=== PATIENT | female | born 1935 | race Hispanic/Latino ===

== ENCOUNTER 2018-11-05 14:33 | Emergency (ER) | payer OTHER ==
--- OUTSIDE RECORDS SUMMARY | 2018-11-05 14:38 | XMS REPORT | Clinical Summary ---
:1935 Author Organization [facility] Address [address] [place] [address] Care Team Providers Name Role Phone Sharpless Primary Care Provider Allergies Active Allergy Reactions Severity Noted Date Comments Capsaicin-Menthol 11/01/2016 Medications Medication Sig Dispensed Refills Start Date End Date Status sulfaSALAzine Take 500 mg by 0 Active (AZULFIDINE) 500 MG EC mouth 2 (two) tablet times daily. losartan (COZAAR) 100 MG Take 100 mg by 0 Active tablet mouth daily. furosemide (LASIX) 20 MG Take 10 mg by 0 Active tablet mouth daily. amLODIPine (NORVASC) 5 MG Take 5 mg by 0 Active tablet mouth nightly. atorvastatin (LIPITOR) 10 Take 10 mg by 0 Active MG tablet mouth daily. famotidine (PEPCID) 40 MG Take 40 mg by 0 Active tablet mouth daily. montelukast (SINGULAIR) Take 10 mg by 0 Active 10 mg tablet mouth every morning. levocetirizine (XYZAL) 5 Take 5 mg by 0 Active MG tablet mouth every evening. gabapentin (NEURONTIN) Take 300 mg by 0 Active 300 MG capsule mouth nightly. timolol (BETIMOL) 0.5 % Place 1 drop 0 Active ophthalmic solution into both eyes every morning. cycloSPORINE (RESTASIS) Place 1 drop 0 Active 0.05 % ophthalmic into both eyes emulsion every morning. Active Problems Problem Noted Date Complete heart block 11/01/2016 HTN (hypertension) 11/01/2016 HLD (hyperlipidemia) 11/01/2016 Cardiac syncope 11/01/2016 Social History Tobacco Use Types Packs/Day Years Used Date Never Smoker Alcohol Use Drinks/Week oz/Week Comments No Sex Assigned at Date Recorded Not on file Job Start Date Occupation Industry Not on file Not on file Not on file Travel History Travel Start Travel End No recent travel history available. Last Filed Vital Signs Not on file Plan of Treatment Not on file Implants Implanted Type Area Gun Numberer Device Shelf Model / Identifier Expiration Serial / Date Lot Lead Pacemkr Capsur Novus 52cm 5076-52 - [id number] Pacemaker Lead N/A: [employer]:CARD 05/20/2018 5076-52 / Implanted: Qty: 1 on 11/01/2016 by Rodrigo Limon MD Heart RHY:DISEASE MGT [id number] / Lead Pacemkr Capsur Novus 45cm 5076-45 - [id number] Pacemaker Lead N/A: [employer]:CARD 07/26/2018 5076-45 / Implanted: Qty: 1 on 11/01/2016 by Rodrigo Limon MD Heart RHY:DISEASE MGT [id number] / Pacemaker [address] - [id number] Pacemakers Left: [employer]:CARD 12/16/2017 [id number] / Implanted: Qty: 1 on 11/01/2016 by Rodrigo Limon MD Chest RHY:DISEASE MGT [id number] / Wall Results Not on fileafter 11/04/2017 Insurance Payer Benefit Plan / Group Subscriber ID Type Phone Address MEDICARE MEDICARE A B xxxxxxxxxx Medicare MEDICAID MEDICAID [place] xxxxxxxxx Medicaid (Home) [place] [address] Advance Directives For more information, please contact:[address] [phone] Code Status Date Activated Date Inactivated Comments Full Code 11/01/2016 1:18 PM 11/02/2016 5:18 PM This code status was determined by: Patient Full Code 11/01/2016 12:43 AM 11/01/2016 1:18 PM This code status was determined by: Patient
--- OUTSIDE RECORDS SUMMARY | 2018-11-05 14:38 | XMS REPORT ---
:1935 Author Organization [facility] Address [address] [place] [address] [address] [place] [address] Care Team Providers Name Role Phone RUPINDER BECKWITH Unavailable Unavailable Problems This patient has no known problems. Allergies, Adverse Reactions, Alerts This patient has no known allergies or adverse reactions. Medications This patient has no known medications. Results Test Description Test Time Test Comments Text Results Atomic Results Result Comments PROTHROMBIN TIME/INR 2016-11-02 05:40:00 Test Item Value Reference Range Comments PROTIME (BEAKER) (test xrqo=375) 14.8 seconds 11.7-14.7 INR (BEAKER) (test sjue=900) 1.2 <=5.9 RECOMMENDED COUMADIN/WARFARIN INR THERAPY RANGESSTANDARD DOSE: 2.0 - 3.0 Includes: PROPHYLAXIS forvenous thrombosis, systemic embolization; TREATMENT for venous thrombosis and/or pulmonary embolus.HIGH RISK: Target INR is 2.5-3.5 for patients with mechanical heart valves.[id number] 05:24:00 Test Item Value Reference Range Comments SODIUM (BEAKER) (test hhkw=744) 140 meq/L 136-145 POTASSIUM (BEAKER) (test rcyz=898) 3.5 meq/L 3.5-5.1 CHLORIDE (BEAKER) (test llzv=379) 110 meq/L 98-107 CO2 (BEAKER) (test ngio=390) 23 meq/L 22-29 BUN AND [id number] 05:24:00 Test Item Value Reference Range Comments BLOOD UREA NITROGEN 16 mg/dL 7-21 (BEAKER) (test zvnb=504) CREATININE (BEAKER) (test 0.70 mg/dL 0.57-1.25 qywu=521) EGFR (BEAKER) (test 81 mL/min/1.73 sq m ESTIMATED GFR IS NOT hxka=4641) ACCURATE CREATININE CLEARANCE IN PREDICTING GLOMERULAR FILTRATION RATE. ESTIMATED GFR IS NOT APPLICABLE FOR DIALYSIS PATIENTS. CBC (HEMOGRAM ONLY)2016-11-02 05:21:00 Test Item Value Reference Range Comments WHITE BLOOD CELL COUNT (BEAKER) (test hdxm=888) 10.4 K/ L 4.0-10.0 RED BLOOD CELL COUNT (BEAKER) (test jntv=624) 3.86 M/ L 4.00-5.00 HEMOGLOBIN (BEAKER) (test gjlo=484) 11.4 GM/DL 12.0-15.0 HEMATOCRIT (BEAKER) (test lvjb=171) 34.7 % 36.0-45.0 MEAN CORPUSCULAR VOLUME (BEAKER) (test qgky=106) 90.0 fL 82.0-99.0 MEAN CORPUSCULAR HEMOGLOBIN (BEAKER) (test 29.6 pg 27.0-33.0 lgfv=299) MEAN CORPUSCULAR HEMOGLOBIN CONC (BEAKER) (test 33.0 GM/DL 32.0-36.0 kqqx=340) RED CELL DISTRIBUTION WIDTH (BEAKER) (test 12.8 % 10.3-14.2 jgkq=528) PLATELET COUNT (BEAKER) (test fjng=298) 204 K/CU MM 150-430 MEAN PLATELET VOLUME (BEAKER) (test fdre=554) 7.1 fL 6.5-10.5 NUCLEATED RED BLOOD CELLS (BEAKER) (test 0 /100 WBC 0-0 evzd=736) 0.00CREATINE KINASE (CK), TOTAL AND [id number] 01:42:00 Test Item Value Reference Range Comments CREATINE KINASE TOTAL (BEAKER) (test defu=731) 161 U/L 29-200 CREATINE KINASE-MB (BEAKER) (test adiw=518) 2.9 ng/mL 0.0-6.6 CREATINE KINASE-MB INDEX (BEAKER) (test uyvu=133) 1.8 % Effective 07/22/2014: CK-MB Reference Range ChangeNew: 0.0-6.6 Previous: 0.0- 4.9CK-MB Reference Range:<6.7 Normal6.7-10.0 Borderline>10.0 AbnormalTROPONIN [id number] 01:42:00 Test Item Value Reference Range Comments TROPONIN I (BEAKER) (test rdrk=394) 0.02 ng/mL 0.00-0.03 Effective 07/22/2014: Reference Range ChangeNew: 0.00-0.03 Previous 0.00- 0.15Troponin I (TnI) levels must be interpreted in the context of the presenting symptoms and the clinical findings. Elevated TnI levels indicate myocardial damage, but are not specific for ischemic heart disease. Elevated TnI levels are seen in patients with other cardiac conditions (including myocarditis and congestive heartfailure), and slight TnI elevations occur in patients with other conditions, including sepsis, renalfailure, acidosis, acute neurological disease, and persistent tachyarrhythmia.[id number] 01:35: 00 Test Item Value Reference Range Comments MAGNESIUM (BEAKER) (test strz=545) 1.9 mg/dL 1.6-2.6 BASIC METABOLIC [id number] 01:35:00 Test Item Value Reference Range Comments SODIUM (BEAKER) (test 141 meq/L 136-145 djbd=870) POTASSIUM (BEAKER) (test 4.7 meq/L 3.5-5.1 lzty=915) CHLORIDE (BEAKER) (test 108 meq/L 98-107 oldd=848) CO2 (BEAKER) (test 22 meq/L 22-29 qcvg=411) BLOOD UREA NITROGEN 24 mg/dL 7-21 (BEAKER) (test vcjv=734) CREATININE (BEAKER) (test 1.40 mg/dL 0.57-1.25 ptmz=368) GLUCOSE RANDOM (BEAKER) 151 mg/dL 70-105 (test rmcr=908) CALCIUM (BEAKER) (test 9.7 mg/dL 8.4-10.2 iugq=142) EGFR (BEAKER) (test 36 mL/min/1.73 sq m ESTIMATED GFR IS NOT efdi=6750) ACCURATE CREATININE CLEARANCE IN PREDICTING GLOMERULAR FILTRATION RATE. ESTIMATED GFR IS NOT APPLICABLE FOR DIALYSIS PATIENTS. HEPATIC FUNCTION [id number] 01:35:00 Test Item Value Reference Range Comments TOTAL PROTEIN (BEAKER) (test gpav=797) 6.8 gm/dL 6.0-8.3 ALBUMIN (BEAKER) (test xhzh=0857) 3.8 g/dL 3.5-5.0 BILIRUBIN TOTAL (BEAKER) (test trcr=924) 0.5 mg/dL 0.2-1.2 BILIRUBIN DIRECT (BEAKER) (test hqze=286) 0.2 mg/dL 0.1-0.5 ALKALINE PHOSPHATASE (BEAKER) (test ohbu=352) 64 U/L 40-150 AST (SGOT) (BEAKER) (test irqf=624) 19 U/L 5-34 ALT (SGPT) (BEAKER) (test atmk=714) 18 U/L 6-55 LACTIC ACID, VENOUS, WHOLE [id number] 01:31:00 Test Item Value Reference Range Comments LACTATE BLOOD VENOUS (2) (BEAKER) (test 1.6 mmol/L 0.5-2.2 etif=1925) Effective 01/06/2016: Units/Reference Range ChangeNew: 0.5-2.2 mmol/L Previous: 5 -20 mg/dLCBC (HEMOGRAM ONLY)2016-11-01 01:20:00 Test Item Value Reference Range Comments WHITE BLOOD CELL COUNT (BEAKER) (test yeoc=388) 12.9 K/ L 4.0-10.0 RED BLOOD CELL COUNT (BEAKER) (test tsba=591) 3.97 M/ L 4.00-5.00 HEMOGLOBIN (BEAKER) (test rufo=425) 12.5 GM/DL 12.0-15.0 HEMATOCRIT (BEAKER) (test cthz=259) 36.0 % 36.0-45.0 MEAN CORPUSCULAR VOLUME (BEAKER) (test bcmn=321) 90.7 fL 82.0-99.0 MEAN CORPUSCULAR HEMOGLOBIN (BEAKER) (test 31.5 pg 27.0-33.0 esvj=408) MEAN CORPUSCULAR HEMOGLOBIN CONC (BEAKER) (test 34.7 GM/DL 32.0-36.0 cjep=090) RED CELL DISTRIBUTION WIDTH (BEAKER) (test 12.6 % 10.3-14.2 kjdq=124) PLATELET COUNT (BEAKER) (test dhqw=061) 281 K/CU MM 150-430 MEAN PLATELET VOLUME (BEAKER) (test aruv=590) 7.4 fL 6.5-10.5 NUCLEATED RED BLOOD CELLS (BEAKER) (test 0 /100 WBC 0-0 tmwu=700) 0.00
[2018-11-05] MEDS ORDERED: HYDROCODONE/APAP 5/325 MG TAB ONE (15:46)
--- NOTE | 2018-11-05 16:06 | RAD REPORT ---
EXAM DESCRIPTION: RAD - Humerus Left - 11/05/2018 4:00 pm CLINICAL HISTORY: trip and fall;Pain COMPARISON: No comparisons FINDINGS: Mildly comminuted impacted fracture proximal left humerus is identified. A dislocation is not seen.
--- NOTE | 2018-11-05 16:14 | EDPHYS ---
Physician Documentation [facility] Name: Jessie Mckenna Age: 83 yrs Sex: Female : 1935 Arrival Date: 11/05/2018 Time: 14:37 Bed 15 Private MD: Rusty Arellano B ED Physician Denys Griggs HPI: 11/05 15:35 This 83 yrs old Female presents to ER via Ambulatory with complaints of Fall cp Injury. 15:35 Details of fall: The patient fell from an upright position, while standing. Onset: The cp symptoms/episode began/occurred today. Associated injuries: The patient sustained left upper arm pain, decreased range of motion, painful injury. Severity of symptoms: in the emergency department the symptoms are unchanged, despite home interventions. Historical: - Allergies: 15:02 No Known Allergies; ss - PSHx: 15:02 pacemaker; partial hysterectomy; ss - Immunization history:: Adult Immunizations up to date. - Social history:: Smoking status: Patient/guardian denies using tobacco. - Ebola Screening: : Patient denies exposure to infectious person Patient denies travel to an Ebola-affected area in the 21 days before illness onset. ROS: 15:40 Constitutional: Negative for body aches, chills, fever, poor PO intake. cp 15:40 Eyes: Negative for injury, pain, redness, and discharge. cp 15:40 ENT: Negative for drainage from ear(s), ear pain, sore throat, difficulty swallowing, difficulty handling secretions. 15:40 Neck: Negative for pain with movement, pain at rest, stiffness, bony tenderness. 15:40 Cardiovascular: Negative for chest pain, palpitations. 15:40 Respiratory: Negative for cough, shortness of breath, wheezing. 15:40 Abdomen/GI: Negative for abdominal pain, nausea, vomiting, and diarrhea. 15:40 Back: Negative for pain at rest, pain with movement. 15:40 MS/extremity: Positive for decreased range of motion, pain, tenderness, of the left upper arm, Negative for paresthesias. 15:40 Neuro: Negative for altered mental status, headache, loss of consciousness, syncope, near syncope, weakness. 15:40 All other systems are negative. Exam: 15:45 Constitutional: The patient appears in no acute distress, alert, awake, cp non-diaphoretic, non-toxic, well developed, well nourished. 15:45 Head/Face: Normocephalic, atraumatic. cp 15:45 Eyes: Periorbital structures: appear normal, Conjunctiva: normal, no exudate, no injection, Lids and lashes: appear normal, bilaterally. 15:45 ENT: External ear(s): are unremarkable, Nose: is normal, Mouth: Lips: moist, Oral mucosa: moist, Posterior pharynx: Airway: no evidence of obstruction, patent. 15:45 Neck: C-spine: vertebral tenderness, is not appreciated, crepitus, is not appreciated, ROM/movement: is normal, is supple, without pain, no range of motions limitations, no nuchal rigidity. 15:45 Chest/axilla: Inspection: normal, Palpation: is normal, no crepitus, no tenderness. 15:45 Cardiovascular: Rate: normal, Rhythm: regular. 15:45 Respiratory: the patient does not display signs of respiratory distress, Respirations: normal, no use of accessory muscles, no retractions, no splinting, no tachypnea, labored breathing, is not present, Breath sounds: are clear throughout, no decreased breath sounds, no stridor, no wheezing. 15:45 Abdomen/GI: Exam negative for discomfort, distension, guarding, Inspection: abdomen appears normal. 15:45 Back: pain, is absent, ROM is normal. 15:45 Musculoskeletal/extremity: Extremities: grossly normal except: noted in the left upper arm: decreased ROM, pain, tenderness, Perfusion: the extremity is normally perfused throughout, Sensation intact. 15:45 Neuro: Orientation: to person, place \T\ time. Mentation: is normal. Vital Signs: 15:02 BP 167 / 67; Pulse 87; Resp 16; Temp 97.4(O); Pulse Ox 97% on R/A; Weight 59.87 kg; ss Height 5 ft. 0 in. (152.40 cm); Pain 5/10; 15:02 Body Mass Index 25.78 (59.87 kg, 152.40 cm) Procedures: 16:30 Splinting: Splint applied to left arm using sling, applied by nurse. Examined by me, cp post splint application: neurovascular intact, Patient tolerated well. MDM: 15:27 Patient medically screened. cp 16:10 Data reviewed: vital signs, nurses notes, radiologic studies, plain films. 16:10 Test interpretation: by ED physician or midlevel provider: plain radiologic studies. 11/05 15:32 Order name: XRAY Humerus LEFT; Complete Time: 16:07 cp 11/05 16:07 Interpretation: Report reviewed. 11/05 16:02 Order name: Slyany; Complete Time: 16:43 cp Administered Medications: 15:39 Not Given (Patient Refused): HYDROcodone-acetaminophen 5 mg-325 mg 1 tabs PO once ls4 16:04 Drug: Ibuprofen 800 mg Route: PO; ls4 16:24 Follow up: Response: No adverse reaction; Marked relief of symptoms ls4 Disposition: 19:31 Co-signature as Attending Physician, Denys Griggs MD. Disposition: 11/05/18 16:13 Discharged to Home. Impression: Comminuted fracture proximal left humerus. - Condition is Stable. - Discharge Instructions: Humerus Fracture Treated With Immobilization. - Prescriptions for Ibuprofen 800 mg Oral Tablet - take 1 tablet by ORAL route every 8 hours As needed take with food; 30 tablet. - Medication Reconciliation Form, Thank You Letter, Antibiotic Education, Prescription Opioid Use form. - Follow up: William Carr MD; When: 2 - 3 days; Reason: Recheck today's complaints. - Problem is new. - Symptoms have improved. Signatures: Dispatcher [employer] EDNM Loren Bender RN RN Ravinder Crowell, JEWEL PA Denys Griggs MD MD Iesha Medina RN RN ls4 Corrections: (The following items were deleted from the chart) 16:48 16:13 11/05/2018 16:13 Discharged to Home. Impression: Comminuted fracture proximal ls4 left humerus. Condition is Stable. Forms are Medication Reconciliation Form, Thank You Letter, Antibiotic Education, Prescription Opioid Use. Follow up: Dr. William Carr; When: 2 - 3 days; Reason: Recheck today's complaints. Problem is new. Symptoms have improved. cp
--- NOTE | 2018-11-05 16:14 | ER ---
Nurse's Notes [facility] Name: Jessie Mckenna Age: 83 yrs Sex: Female : 1935 Arrival Date: 11/05/2018 Time: 14:37 Bed 15 Private MD: Rusty Arellano B Diagnosis: Comminuted fracture proximal left humerus Presentation: 11/05 15:00 Presenting complaint: Patient states: c/o L shoulder/ humerus pain that began after ss falling from a standing position. Pt reports she was chasing a baby when tripped and fell. Denies dizziness. Transition of care: patient was not received from another setting of care. Onset of symptoms was November 05, 2018. Risk Assessment: Do you want to hurt yourself or someone else? Patient reports no desire to harm self or others. Initial Sepsis Screen: Does the patient meet any 2 criteria? No. Patient's initial sepsis screen is negative. Does the patient have a suspected source of infection? No. Patient's initial sepsis screen is negative. Care prior to arrival: None. 15:00 Method Of Arrival: Ambulatory ss 15:00 Acuity: SUNSHINE 4 ss Triage Assessment: 15:06 General: Appears in no apparent distress. Behavior is calm, cooperative. ls4 Historical: - Allergies: 15:02 No Known Allergies; ss - PSHx: 15:02 pacemaker; partial hysterectomy; ss - Immunization history:: Adult Immunizations up to date. - Social history:: Smoking status: Patient/guardian denies using tobacco. - Ebola Screening: : Patient denies exposure to infectious person Patient denies travel to an Ebola-affected area in the 21 days before illness onset. Screenin:03 Abuse screen: Denies threats or abuse. Denies injuries from another. Nutritional ls4 screening: No deficits noted. Tuberculosis screening: No symptoms or risk factors identified. Fall Risk None identified. Assessment: 15:30 Pain: Complains of pain in anterior aspect of left shoulder and left axilla Pain ls4 currently is 8 out of 10 on a pain scale. Quality of pain is described as aching. 15:30 Neuro: No deficits noted. Cardiovascular: No deficits noted. Respiratory: No deficits ls4 noted. GI: No deficits noted. : No deficits noted. 15:30 Musculoskeletal: Circulation, motion, and sensation intact. Capillary refill < 3 ls4 seconds, Range of motion: intact in all extremities. Vital Signs: 15:02 BP 167 / 67; Pulse 87; Resp 16; Temp 97.4(O); Pulse Ox 97% on R/A; Weight 59.87 kg; ss Height 5 ft. 0 in. (152.40 cm); Pain 5/10; 15:02 Body Mass Index 25.78 (59.87 kg, 152.40 cm) ED Course: 14:37 Patient arrived in ED. mr 14:38 Rusty Arellano MD is Private Physician. mr 15:01 Triage completed. ss 15:02 Arm band placed on right wrist. ss 15:03 Iesha Medina, RN is Primary Nurse. ls4 15:03 Patient has correct armband on for positive identification. Bed in low position. Call ls4 light in reach. Side rails up X 1. Adult w/ patient. Pulse ox on. NIBP on. Warm blanket given. Verbal reassurance given. 15:03 No provider procedures requiring assistance completed. ls4 15:10 Patient did not have IV access during this emergency room visit. ls4 15:26 Ravinder Ramos PA is PHCP. cp 15:26 Denys Griggs MD is Attending Physician. cp 16:00 XRAY Humerus LEFT In Process Unspecified. EDIA 16:00 X-ray completed. Portable x-ray completed in exam room. Patient tolerated procedure mh1 well. 16:12 William Carr MD is Referral Physician. cp Administered Medications: 15:39 Not Given (Patient Refused): HYDROcodone-acetaminophen 5 mg-325 mg 1 tabs PO once ls4 16:04 Drug: Ibuprofen 800 mg Route: PO; ls4 16:24 Follow up: Response: No adverse reaction; Marked relief of symptoms ls4 Outcome: 16:13 Discharge ordered by . cp 16:13 Discharged to home ambulatory. ls4 16:13 Condition: stable 16:13 Discharge instructions given to patient, friend, Instructed on discharge instructions, follow up and referral plans. medication usage, Demonstrated understanding of instructions, follow-up care, medications. 16:48 Patient left the ED. ls4 Signatures: Dispatcher [employer] EDIA Lala Leon Martha 1 Loren Bender RN RN Ravinder Ramos PA PA cp Iesha Medina, SHUKRI RN ls4
[2018-11-05] MEDS ORDERED: IBUPROFEN 400 MG TAB ONE (16:36)
== END 2018-11-05 16:48 | disposition home or self-care (01) ==
LOC: ER 14:33
DX: S42.202A Unspecified fracture of upper end of left humerus, initial encounter for closed fracture (principal); W18.30XA Fall on same level, unspecified, initial encounter
CPT/HCPCS: 99283

== ENCOUNTER 2022-03-07 10:34 | Emergency (ER) | payer OTHER ==
--- NOTE | 2022-03-07 12:17 | RAD REPORT ---
EXAM DESCRIPTION: RAD - Chest Single View - 03/07/2022 12:08 pm CLINICAL HISTORY: FEVER COMPARISON: Two view chest May 2018 TECHNIQUE: AP portable chest image was obtained 03/07/2022 12:08 pm . FINDINGS: No focal infiltrate seen. Interstitial pattern is prominent but matches prior imaging. Sca ttered granulomatous calcifications are seen. Left subclavian 2 lead pacemaker is in place. Heart and vasculature are normal. No measurable pleural effusion and no pneumothorax. No acute bony abnormality seen. No acute aortic findings suspected. IMPRESSION: No acute cardiopulmonary process. No significant change from comparison study.
[2022-03-07 12:32] LABS: Protime INR 1.13
[2022-03-07 12:35] LABS: Absolute Lymphocytes (CBC) 0.9 K/uL (0.7-4.9); Hematocrit 35.6 % (36.0-45.0); Lymphocytes % 13.7 % (15.3-44.8); MCV 86.2 fL (80-100); MPV 8.8 fL (7.6-11.3); RBC Red Blood Cell Count 4.13 M/uL (3.86-4.86)
[2022-03-07 12:39] LABS: Albumin 3.5 g/dL (3.4-5.0); Bilirubin Total 0.4 mg/dL (0.2-1.0); Potassium 4.2 mmol/L (3.5-5.1); Protein, Total 6.8 g/dL (6.4-8.2)
--- NOTE | 2022-03-07 14:40 | EDPHYS ---
Physician Documentation [facility] Name: Jesise Mckenna Age: 86 yrs Sex: Female : 1935 Arrival Date: 03/07/2022 Time: 10:37 Bed 16 Private MD: ED Physician Dax Montes De Oca HPI: 03/07 19:03 This 86 yrs old Female presents to ER via Wheelchair with complaints of kdr Shortness Of Breath, Cough, Sore Throat, Vertigo, Headache. 19:03 The patient has shortness of breath at rest, with light activity. Onset: The kdr symptoms/episode began/occurred gradually, 1 week(s) ago. Duration: The symptoms are continuous, and are steadily getting worse. The patient's shortness of breath is aggravated by nothing, is alleviated by nothing. Patient complains of generalized body aches short of breath vertigo headache cough and sore throat for 1 week.. 19:04 Severity of symptoms: At their worst the symptoms were mild in the emergency department kdr the symptoms are unchanged. The patient has not experienced similar symptoms in the past. The patient has not recently seen a physician. Historical: - Allergies: 10:47 No Known Allergies; callejas - Home Meds: 10:47 gabapentin Oral [Active]; Singulair Oral [Active]; carvedilol 3.125 mg oral tab 1 tab 2 callejas times per day [Active]; - PMHx: 10:47 pacemaker; callejas - Immunization history:: Adult Immunizations up to date. - Social history:: Smoking status: Patient denies any tobacco usage or history of. ROS: 19:04 Constitutional: Negative for fever, chills, and weight loss, Eyes: Negative for injury, kdr pain, redness, and discharge, Neck: Negative for injury, pain, and swelling, Cardiovascular: Negative for chest pain, palpitations, and edema, Abdomen/GI: Negative for abdominal pain, nausea, vomiting, diarrhea, and constipation, Back: Negative for injury and pain, : Negative for injury, bleeding, discharge, and swelling, MS/Extremity: Negative for injury and deformity, Skin: Negative for injury, rash, and discoloration, Neuro: Negative for headache, weakness, numbness, tingling, and seizure activity. Allergy/Immunology: Negative for hives, rash, and allergies, Endocrine: Negative for neck swelling, polydipsia, polyuria, polyphagia, and marked weight changes, Hematologic/Lymphatic: Negative for swollen nodes, abnormal bleeding, and unusual bruising. 19:04 Respiratory: Positive for cough, with no reported sputum, shortness of breath, Negative for dyspnea on exertion, hemoptysis, orthopnea, pleurisy, shortness of breath. Exam: 19:04 Constitutional: This is a well developed, well nourished patient who is awake, alert, kdr and in no acute distress. Head/Face: Normocephalic, atraumatic. Eyes: Pupils equal round and reactive to light, extra-ocular motions intact. Lids and lashes normal. Conjunctiva and sclera are non-icteric and not injected. Cornea within normal limits. Periorbital areas with no swelling, redness, or edema. Neck: Trachea midline, no thyromegaly or masses palpated, and no cervical lymphadenopathy. Supple, full range of motion without nuchal rigidity, or vertebral point tenderness. No Meningismus. Chest/axilla: Normal chest wall appearance and motion. Nontender with no deformity. No lesions are appreciated. Cardiovascular: Regular rate and rhythm with a normal S1 and S2. No gallops, murmurs, or rubs. Normal PMI, no JVD. No pulse deficits. Abdomen/GI: Soft, non-tender, with normal bowel sounds. No distension or tympany. No guarding or rebound. No evidence of tenderness throughout. Back: No spinal tenderness. No costovertebral tenderness. Full range of motion. Skin: Warm, dry with normal turgor. Normal color with no rashes, no lesions, and no evidence of cellulitis. MS/ Extremity: Pulses equal, no cyanosis. Neurovascular intact. Full, normal range of motion. Neuro: Awake and alert, GCS 15, oriented to person, place, time, and situation. Cranial nerves II-XII grossly intact. Motor strength 5/5 in all extremities. Sensory grossly intact. Cerebellar exam normal. Normal gait. Psych: Awake, alert, with orientation to person, place and time. Behavior, mood, and affect are within normal limits. 19:04 Respiratory: the patient does not display signs of respiratory distress, Respirations: normal, Breath sounds: rales, that are mild, are scattered, are located in both bases. Vital Signs: 10:45 BP 111 / 44; Pulse 91; Resp 17; Temp 99.0(O); Pulse Ox 98% on R/A; Weight 63.5 kg; callejas Height 4 ft. 11 in. (149.86 cm); 11:16 BP 105 / 46; Pulse 74; Resp 18; Pulse Ox 93% on 2 lpm NC; Pain 2/10; jh6 10:45 Body Mass Index 28.28 (63.50 kg, 149.86 cm) callejas MDM: 14:39 Patient medically screened. kdr 19:04 Data reviewed: vital signs, lab test result(s), radiologic studies. Counseling: I had a kdr detailed discussion with the patient and/or guardian regarding: the historical points, exam findings, and any diagnostic results supporting the discharge/admit diagnosis, lab results, radiology results, the need for outpatient follow up. 03/07 11:16 Order name: Flu; Complete Time: 13:45 [facility] 03/07 11:24 Order name: SARS-COV-2 RT PCR (Document "Date of Onset" if Symptomatic); Complete Time: bp 14:31 03/07 11:57 Order name: Blood Culture Adult (2) [facility] 03/07 11:57 Order name: CBC with Diff; Complete Time: 13:45 [facility] 03/07 11:57 Order name: CMP; Complete Time: 13:45 [facility] 03/07 11:57 Order name: Lactate; Complete Time: 13:45 [facility] 03/07 11:57 Order name: Protime (+inr); Complete Time: 13:45 [facility] 03/07 11:57 Order name: Ptt, Activated; Complete Time: 13:45 [facility] 03/07 11:57 Order name: Chest Single View XRAY; Complete Time: 13:45 [facility] 03/07 11:57 Order name: Cardiac monitoring; Complete Time: 12:13 [facility] 03/07 11:57 Order name: EKG - Nurse/Tech; Complete Time: 12:57 kdr 03/07 11:57 Order name: IV Saline Lock - Large Bore; Complete Time: 12:13 [facility] 03/07 11:57 Order name: Labs collected and sent; Complete Time: 12:13 [facility] 03/07 11:57 Order name: O2 Per Protocol; Complete Time: 12:13 kdr 03/07 11:57 Order name: O2 Sat Monitoring; Complete Time: 12:14 kdr Administered Medications: 15:13 Drug: Bebtelovimab 175 mg Route: IV; Rate: calculated rate; Site: right antecubital; jh6 Disposition Summary: 03/07/22 14:39 Discharge Ordered Location: Home kdr Problem: an ongoing problem kdr Symptoms: have improved kdr Condition: Stable kdr Diagnosis - SARS-associated coronavirus as the cause of diseases classified elsewhere kdr Followup: kdr - With: Private Physician - When: 2 - 3 days - Reason: If symptoms return, Further diagnostic work-up, Recheck today's complaints, Continuance of care, Re-evaluation by your physician Discharge Instructions: - Discharge Summary Sheet kdr - COVID-19 kdr - Things to Know about the COVID-19 Pandemic - [facility] kdr - 10 Things You Can Do to Manage Your COVID-19 Symptoms at Home - [facility] kdr - Viral Illness, Adult kdr - COVID-19: Quarantine vs. Isolation - [facility] kdr - Prevent the Spread of COVID-19 if You Are Sick - [facility] kdr Forms: - Medication Reconciliation Form kdr - Thank You Letter kdr - Work release form eb Prescriptions: - Ibuprofen 600 mg Oral Tablet - take 1 tablet by ORAL route every 6 hours As needed take with food; 30 tablet; kdr Refills: 0, Product Selection Permitted - Zofran 4 mg Oral Tablet - take 1 tablet by ORAL route every 12 hours As needed; 6 tablet; Refills: 0, kdr Product Selection Permitted Signatures: Dispatcher [employer] Dax Mazariegos MD MD kdr Hastedt, Jennifer, RN RN jh6 Elena Guadalupe RN RN callejas
--- NOTE | 2022-03-07 14:40 | ER ---
Nurse's Notes [facility] Name: Jessie Mckenna Age: 86 yrs Sex: Female : 1935 Arrival Date: 03/07/2022 Time: 10:37 Bed 16 Private MD: Diagnosis: SARS-associated coronavirus as the cause of diseases classified elsewhere Presentation: 03/07 10:45 Chief complaint: Patient states: pt reports body aches, SOB, vertigo, headaches, cough, callejas sore throat x 7 week. Coronavirus screen: Vaccine status: Patient reports receiving the 2nd dose of the covid vaccine. Ebola Screen: Patient denies travel to an Ebola-affected area in the 21 days before illness onset. Initial Sepsis Screen: Does the patient meet any 2 criteria? HR > 90 bpm. No. Patient's initial sepsis screen is negative. Does the patient have a suspected source of infection? No. Patient's initial sepsis screen is negative. Risk Assessment: Do you want to hurt yourself or someone else? Patient reports no desire to harm self or others. Onset of symptoms was February 27, 2022. 10:45 Method Of Arrival: Wheelchair callejas 10:45 Acuity: SUNSHINE 3 callejas Triage Assessment: 11:19 Respiratory: Onset: The symptoms/episode began/occurred yesterday, the patient has mild jh6 shortness of breath. Historical: - Allergies: 10:47 No Known Allergies; callejas - Home Meds: 10:47 gabapentin Oral [Active]; Singulair Oral [Active]; carvedilol 3.125 mg oral tab 1 tab 2 callejas times per day [Active]; - PMHx: 10:47 pacemaker; callejas - Immunization history:: Adult Immunizations up to date. - Social history:: Smoking status: Patient denies any tobacco usage or history of. Screenin:18 Abuse screen: Denies threats or abuse. Nutritional screening: No deficits noted. jh6 Tuberculosis screening: No symptoms or risk factors identified. Fall Risk Ambulatory Aid- Crutches/Cane/Walker (15 pts). Assessment: 11:16 General: Appears in no apparent distress. Behavior is calm, cooperative. Pain: 6 Complains of pain in chest, abdomen, right arm, left arm, right leg and left leg Pain currently is 2 out of 10 on a pain scale. Quality of pain is described as aching. Neuro: No deficits noted. Reports headache in entire since yesterday. Cardiovascular: Reports fatigue, shortness of breath, Denies chest pain, Rhythm is ventricular pacer. 11:18 Respiratory: Reports shortness of breath since 2-3 days cough that is non-productive, jh6 dry, since for 2wks Airway is patent Trachea midline Respiratory effort is even, unlabored, Respiratory pattern is regular, symmetrical, 12:20 Reassessment: Patient and/or family updated on plan of care and expected duration. Pain jh6 level reassessed. Patient is alert, oriented x 3, equal unlabored respirations, skin warm/dry/pink. pt reporting that the o2 at 2lpm helped with cough and sob Patient states feeling better. 13:30 Reassessment: No changes from previously documented assessment. jh6 14:30 Reassessment: Patient and/or family updated on plan of care and expected duration. Pain jh6 level reassessed. Patient is alert, oriented x 3, equal unlabored respirations, skin warm/dry/pink. Patient denies pain at this time. Patient states feeling better. 14:30 Respiratory: No deficits noted. Breath sounds are clear. jh6 15:40 Reassessment: Patient and/or family updated on plan of care and expected duration. Pain jh6 level reassessed. Patient is alert, oriented x 3, equal unlabored respirations, skin warm/dry/pink. information given for antibodies with daughter in room . pt agrees to infusion and states that she is feeling good rt now. 16:28 Reassessment: Patient and/or family updated on plan of care and expected duration. Pain jh6 level reassessed. Patient is alert, oriented x 3, equal unlabored respirations, skin warm/dry/pink. no reaction to med given verbal understanding of d/c instructions and follow up care. no sob or pain at this time. 16:50 General: pt taken off of O2 for room stat and remained at 98% while in the bed. then jh6 5min later pt was able to stand with little assistance and walk \T\ room without O2 dropping below 94%. pt and family educated on when to come back if s/s worsened and home care. . Vital Signs: 10:45 BP 111 / 44; Pulse 91; Resp 17; Temp 99.0(O); Pulse Ox 98% on R/A; Weight 63.5 kg; callejas Height 4 ft. 11 in. (149.86 cm); 11:16 BP 105 / 46; Pulse 74; Resp 18; Pulse Ox 93% on 2 lpm NC; Pain 2/10; jh6 10:45 Body Mass Index 28.28 (63.50 kg, 149.86 cm) ED Course: 10:37 Patient arrived in ED. j 10:37 Dax Montes De Oca MD is Attending Physician. kdr 10:47 Triage completed. callejas 11:04 Kimberly Gregory, RN is Primary Nurse. [facility] 11:19 Placed in gown. Bed in low position. Call light in reach. Side rails up X 1. Adult w/ 6 patient. Client placed on continuous cardiac and pulse oximetry monitoring. NIBP monitoring applied. train gateman on. Pulse ox on. NIBP on. 11:19 Patient placed in the treatment room, on a stretcher, on oxygen, on panel raiser operator, on [facility] pulse oximetry. 11:19 COVID swab sent to lab. Flu and/or RSV swab sent to lab. [facility] 12:10 Chest Single View XRAY In Process Unspecified. EDMS 16:30 IV discontinued, intact, bleeding controlled, No redness/swelling at site. Pressure 6 dressing applied. 16:30 No provider procedures requiring assistance completed. 6 Administered Medications: 15:13 Drug: Bebtelovimab 175 mg Route: IV; Rate: calculated rate; Site: right antecubital; [facility] Outcome: 14:39 Discharge ordered by . kdr 16:29 Discharged to home ambulatory. [facility] 16:29 Condition: improved 16:29 Discharge instructions given to patient, family, Instructed on discharge instructions, follow up and referral plans. Demonstrated understanding of instructions, follow-up care. 17:14 Patient left the ED. 6 Signatures: Dispatcher [employer] EDMS Dax Montes De Oca MD MD [facility] Kimberly Collazo j6 Kimberly Gregory, RN SHUKRI [facility] Au-StagerElena RN RN
[2022-03-07] MEDS ORDERED: BEBTELOVIMAB 175 MG/2 ML VIAL IV ONE (15:02)
[2022-03-07 17:24] VITALS: TEMP 99
[2022-03-07 17:26] VITALS: BP 105/46; O2SAT 93
== END 2022-03-07 17:14 | disposition home or self-care (01) ==
LOC: ER 10:34
DX: R06.02 Shortness of breath (principal); U07.1 COVID-19; R42 Dizziness and giddiness; R51.9 Headache, unspecified; R05.9 Cough, unspecified; J02.9 Acute pharyngitis, unspecified; R52 Pain, unspecified
CPT/HCPCS: 87040 ×2; 85025; 36415; 85610; 83605; 85730; 80053; 87804 ×2; 71045; 99285; U0003

== ENCOUNTER → 2023-11-08 | Emergency (ER) | payer OTHER ==
--- NOTE | 2023-11-08 21:00 | RAD REPORT ---
EXAM DESCRIPTION: Cal Single View11/08/2023 8:46 pm CLINICAL HISTORY: Chest pain COMPARISON: 2021 FINDINGS: The lungs appear clear of acute infiltrate. The heart is mildly enlarged. Pacemaker leads in place IMPRESSION: No acute abnormalities displayed
--- NOTE | 2023-11-08 21:00 | RAD REPORT ---
EXAM DESCRIPTION: RAD - Shoulder Left 2 View - 11/08/2023 8:46 pm CLINICAL HISTORY: Left shoulder pain status post fall FINDINGS: Old impacted humeral head fracture. No acute fracture or dislocation visualized
--- NOTE | 2023-11-08 22:09 | EDPHYS ---
Physician Documentation [facility] Name: Jessie Mckenna Age: 88 yrs Sex: Female : 1935 Arrival Date: 11/08/2023 Time: 19:15 Bed 16 Private MD: ED Physician Johnny Castellanos HPI: 11/07 22:13 This 88 yrs old Female presents to ER via Wheelchair with complaints of Fall kb Injury. 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 States she landed on left shoulder. Denies any other pain. Denies hitting head. . Historical: - Allergies: 19:47 No Known Allergies; tl4 - PMHx: 19:47 Pacemaker; Hypertensive disorder; tl4 - Immunization history:: Adult Immunizations unknown. - Social history:: Smoking status: Patient denies any tobacco usage or history of. ROS: 22:13 Constitutional: As per HPI kb Exam: 22:13 Constitutional: This is a well developed, well nourished patient who is awake, alert, kb and in no acute distress. Head/Face: Normocephalic, atraumatic. ENT: Moist Mucous membranes Cardiovascular: Regular rate Respiratory: Respirations even and unlabored. No increased work of breathing. Talking in full sentences Skin: Warm, dry with normal turgor. Normal color. Neuro: Awake and alert, GCS 15, oriented to person, place, time, and situation. Moves all extremities. Normal gait. 22:13 Musculoskeletal/extremity: Extremities: grossly normal except: noted in the anterior aspect of left shoulder and posterior aspect of left shoulder: pain, tenderness, ROM: limited active range of motion due to pain, Circulation is intact in all extremities. Sensation intact. Weight bearing: able to fully bear weight, Vital Signs: 19:46 BP 159 / 64; Pulse 77; Resp 16; Temp 98.4(O); Pulse Ox 97% on R/A; Weight 61.23 kg; tl4 Height 4 ft. 11 in. ; Pain 8/10; 21:00 BP 149 / 67; Pulse 71; Resp 17 S; Pulse Ox 98% on R/A; ha1 22:00 BP 153 / 68; Pulse 78; Resp 17 S; Temp 98.2; Pulse Ox 98% on R/A; ha1 19:46 Body Mass Index 27.27 (61.23 kg, 149.86 cm) tl4 19:46 Pain Scale: Adult tl4 MDM: 19:33 Patient medically screened. kb 22:14 Differential diagnosis: contusion, fracture, strain. Data reviewed: vital signs, nurses kb notes. Historians other than the Patient: Family Member: family. Counseling: I had a detailed discussion with the patient and/or guardian regarding the historical points, exam findings, and any diagnostic results supporting the discharge/admit diagnosis, radiology results, the need for outpatient follow up, a family practitioner, to return to the emergency department if symptoms worsen or persist or if there are any questions or concerns that arise at home. 11/07 19:43 Order name: Chest Single View XRAY; Complete Time: 21:15 kb 11/07 19:43 Order name: Shoulder Left (2 View) XRAY; Complete Time: 21:15 kb Administered Medications: No medications were administered Disposition Summary: 11/08/23 22:08 Discharge Ordered Notes: Location: Home kb Condition: Stable kb Diagnosis - Contusion of left shoulder kb Followup: kb - With: Emergency Department - When: As needed - Reason: Worsening of condition Followup: kb - With: Private Physician - When: 2 - 3 days - Reason: Recheck today's complaints, Continuance of care, Re-evaluation by your physician Discharge Instructions: - Discharge Summary Sheet kb - Contusion, [id number] kb Forms: - Medication Reconciliation Form kb - Thank You Letter kb - Antibiotic Education kb - Prescription Opioid Use kb - Patient Portal Instructions kb - Leadership Thank You Letter kb Addendum: 11/13/2023 08:26 Co-signature as Attending Physician, Johnny Castellanos MD I reviewed the patient's care r n provided by the Advanced Practice Provider and agree with the diagnosis and treatment plan. Signatures: Dispatcher [employer] Nila Rondon, PRIMER INSERTING MACHINE ADJUSTER-C PRIMER INSERTING MACHINE ADJUSTER-Johnny Diaz MD MD rn Logdahl, Toni, RN RN tl4
--- NOTE | 2023-11-08 22:09 | ER ---
Nurse's Notes [facility] Name: Jessie Mckenna Age: 88 yrs Sex: Female : 1935 Arrival Date: 11/08/2023 Time: 19:15 Bed 16 Private MD: Diagnosis: Contusion of left shoulder Presentation: 11/07 19:46 Chief complaint: Patient states: Pt states she tripped over a ladder and fell onto her tl4 left side injuring her left shoulder and the left side of her neck. Pt denies striking her head, LOC. Coronavirus screen: At this time, the client does not indicate any symptoms associated with coronavirus-19. Ebola Screen: No symptoms or risks identified at this time. Initial Sepsis Screen: Does the patient meet any 2 criteria? No. Patient's initial sepsis screen is negative. Does the patient have a suspected source of infection? No. Patient's initial sepsis screen is negative. Risk Assessment: Do you want to hurt yourself or someone else? Patient reports no desire to harm self or others. Onset of symptoms was November 08, 2023. 19:46 Method Of Arrival: Wheelchair tl4 19:46 Acuity: SUNSHINE 4 tl4 Triage Assessment: 19:48 General: Appears in no apparent distress. Behavior is calm, cooperative. Pain: tl4 Complains of pain in left arm and left side of neck. EENT: No deficits noted. No signs and/or symptoms were reported regarding the EENT system. Neuro: No deficits noted. Cardiovascular: No deficits noted. Respiratory: No deficits noted. GI: No deficits noted. No signs and/or symptoms were reported involving the gastrointestinal system. : No deficits noted. No signs and/or symptoms were reported regarding the genitourinary system. Derm: No deficits noted. No signs and/or symptoms reported regarding the dermatologic system. Historical: - Allergies: 19:47 No Known Allergies; tl4 - PMHx: 19:47 Pacemaker; Hypertensive disorder; tl4 - Immunization history:: Adult Immunizations unknown. - Social history:: Smoking status: Patient denies any tobacco usage or history of. Screenin:35 [facility] ED Fall Risk Assessment (Adult) History of falling in the last 3 months, pf1 including since admission Yes- single mechanical fall (1 pt) Confusion or Disorientation No (0 pts) Intoxicated or Sedated No (0 pts) Impaired Gait No (0 pts) Mobility Assist Device Used No (0 pt) Altered Elimination No (0 pt) Score/Fall Risk Level 0 - 2 = Low Risk Oriented to surroundings, Maintained a safe environment, Educated pt \T\ family on fall prevention, incl call for assistance when getting out of bed, Assessed \T\ reinforced patient's understanding of fall precautions, Provided non-skid footwear, Hourly rounding (assess needs \T\ fall precautionary measures) done, Used ambulatory aids as needed (educated on \T\ assisted with), Used gait belt as appropriate. Abuse screen: Denies threats or abuse. Nutritional screening: No deficits noted. Tuberculosis screening: No symptoms or risk factors identified. Assessment: 20:35 General: Appears in no apparent distress. uncomfortable, well groomed, well developed, pf1 Behavior is calm, cooperative, appropriate for age, quiet. 20:35 Pain: Complains of pain in posterior aspect of left shoulder, anterior aspect of left pf1 shoulder, left neck. Neuro: No deficits noted. Level of Consciousness is awake, alert, obeys commands, Oriented to person, place, time, situation. Cardiovascular: No deficits noted. Capillary refill < 3 seconds Patient's skin is warm and dry. Respiratory: No deficits noted. Airway is patent Respiratory effort is even, unlabored, Respiratory pattern is regular, symmetrical, Breath sounds are clear bilaterally. GI: No deficits noted. No signs and/or symptoms were reported involving the gastrointestinal system. : No deficits noted. No signs and/or symptoms were reported regarding the genitourinary system. EENT: No deficits noted. No signs and/or symptoms were reported regarding the EENT system. Derm: No deficits noted. No signs and/or symptoms reported regarding the dermatologic system. Musculoskeletal: Reports pain in posterior aspect of left shoulder, anterior aspect of left shoulder, left neck. 21:30 Reassessment: Patient appears in no apparent distress at this time. Patient and/or pf1 family updated on plan of care and expected duration. Pain level reassessed. Patient is alert, oriented x 3, equal unlabored respirations, skin warm/dry/pink. 22:15 Reassessment: Patient appears in no apparent distress at this time. Patient and/or pf1 family updated on plan of care and expected duration. Pain level reassessed. Patient is alert, oriented x 3, equal unlabored respirations, skin warm/dry/pink. Patient states symptoms have improved. Vital Signs: 19:46 BP 159 / 64; Pulse 77; Resp 16; Temp 98.4(O); Pulse Ox 97% on R/A; Weight 61.23 kg; tl4 Height 4 ft. 11 in. ; Pain 8/10; 21:00 BP 149 / 67; Pulse 71; Resp 17 S; Pulse Ox 98% on R/A; ha1 22:00 BP 153 / 68; Pulse 78; Resp 17 S; Temp 98.2; Pulse Ox 98% on R/A; ha1 19:46 Body Mass Index 27.27 (61.23 kg, 149.86 cm) tl4 19:46 Pain Scale: Adult tl4 ED Course: 03 20:35 Patient has correct armband on for positive identification. Placed in gown. Bed in low pf1 position. Call light in reach. Side rails up X2. 03/06 19:30 Patient arrived in ED. ae5 19:33 Nila Baird FNP-C is [facility]. kb 19:33 Johnny Castellanos MD is Attending Physician. kb 19:47 Triage completed. tl4 19:48 Arm band placed on left wrist. tl4 20:48 Chest Single View XRAY In Process Unspecified. EDMS 20:48 Shoulder Left (2 View) XRAY In Process Unspecified. EDMS 22:23 Provided Education on: follow up and fall precautions. pf1 22:23 No provider procedures requiring assistance completed. pf1 22:23 Patient did not have IV access during this emergency room visit. pf1 Administered Medications: No medications were administered Medication: 22:23 VIS not applicable for this client. pf1 Outcome: 22:08 Discharge ordered by . kb 22:20 Condition: improved pf1 22:20 Discharge instructions given to patient, family, Instructed on discharge instructions, follow up and referral plans. Demonstrated understanding of instructions, follow-up care, 22:23 Discharged to home ambulatory, with family, pf1 22:38 Patient left the ED. pf1 Signatures: Dispatcher [employer] EDMS Nila Baird FNP-C FNP-Ckb Ayala, Heidy, RN RN ha1 Yudelka Miller RN RN pf1 Arsenio Ro RN RN tl4 Tracey Borden ae5 Corrections: (The following items were deleted from the chart) 11/08 06:55 11/07 22:00 BP 153 / 68; Pulse 78bpm; Resp 17bpm; Spontaneous; Pulse Ox 98% RA; ha1 ha1
[2023-11-08 23:10] VITALS: BP 159/64; TEMP 98.4; O2SAT 97
== END ==
LOC: ER 19:15
DX: S40.012A Contusion of left shoulder, initial encounter (principal); W01.0XXA Fall on same level from slipping, tripping and stumbling without subsequent striking against object, initial encounter; Z95.0 Presence of cardiac pacemaker
CPT/HCPCS: 71045; 99283